=== PATIENT | female | born 1940 | race Caucasian/White ===

== ENCOUNTER 2017-02-08 20:11 | Emergency (ER) | payer SELFPAY ==
[~2017-02-08] VITALS: Ht 165.1 cm; Wt 83.5 kg
--- NOTE | 2017-02-08 20:19 | NUR ---
PT RECEIVED FROM HOME C/O COUGH CONGESTION. NO SOB NOTED OR COUGH WITH CLEAR LUNG SOUNDS ON AUSCULTATION. NO C/O PAIN. A/OO X3 SPEAKS YARSANISM. WILL CONTINUE TO MONITOR FOR ANY CHANGES DURING THE SHFIT.
[2017-02-08 21:08] LABS: BASOPHILS # (AUTO) 0.1 /CMM (0.0-0.2); BASOPHILS % (AUTO) 0.9 % (0.0-2.0); EOSINOPHILS % (AUTO) 0.5 % (0.0-6.0); HEMATOCRIT 41 % (33-45); HEMOGLOBIN 14.5 g/dL (11.5-14.8); LYMPHOCYTES # (AUTO) 1.6 /CMM (0.8-4.8); LYMPHOCYTES % (AUTO) 26.7 % (20.0-44.0); MEAN CORPUSCULAR HEMOGLOBIN 29 PG (26.0-33.0); MEAN CORPUSCULAR HGB CONC 35 g/dl (31.0-36.0); MEAN CORPUSCULAR VOLUME 83 fL (82-100); MONOCYTES # (AUTO) 0.8 /CMM (0.1-1.30); MONOCYTES % (AUTO) 12.4 % (2.0-12.0); NEUTROPHILS # (AUTO) 3.6 /CMM (1.8-8.9); NEUTROPHILS % (AUTO) 59.5 % (43.0-81.0); PLATELET COUNT (AUTO) 159 /CMM (150-450); RDW COEFFICIENT OF VARIATION 13.1 (11.5-15.0); RED BLOOD CELL COUNT(AUTO) 4.99 MIL/uL (4.0-5.2); WHITE BLOOD COUNT (AUTO) 6.1 K/uL (4.3-11.0)
[2017-02-08 21:21] LABS: CALCIUM, SERUM 9.1 mg/dL (8.5-10.1); CARBON DIOXIDE 26 mmol/L (21-32); CHLORIDE 100 mmol/L (98-107); CREATININE 1.1 mg/dL (0.6-1.3); GLUCOSE 130 mg/dL (74-106); POTASSIUM 3.3 mmol/L (3.5-5.1); SODIUM SERUM 135 mmol/L (136-145); UREA NITROGEN, BLOOD 22 mg/dL (7-18)
[2017-02-08 21:28] LABS: ALANINE AMINOTRANSFERASE 43 U/L (12-78); ALBUMIN 3.4 g/dL (3.4-5.0); ALKALINE PHOSPHATASE 97 U/L (46-116); ASPARTATE AMINOTRANSFERASE 178 U/L (15-37); BILIRUBIN,DIRECT 0.1 mg/dL (0.0-0.2); BILIRUBIN,TOTAL 0.4 mg/dL (0.2-1.0); TOTAL PROTEIN, SERUM 7.6 g/dL (6.4-8.2)
[2017-02-08] MEDS ORDERED: IV NS 0.9% 1,000 ML BAG IV ONE (21:30)
[2017-02-08 21:32] LABS: TROPONIN I 0.027 ng/mL (0.00-0.056)
--- NOTE | 2017-02-08 22:10 | NUR ---
pt resting quietly, no acute distress noted, resp even and unlabored. pt daughter at bedside.
--- NOTE | 2017-02-08 23:06 | NUR ---
pt resting, pain free. call nakita emmanuel.
[2017-02-08] MEDS ORDERED: ASPIRIN 325 MG TABLET PO ONE (23:30)
[2017-02-08] MEDS ORDERED: ASPIRIN 325 MG TABLET ONE (23:31)
--- NOTE | 2017-02-08 23:55 | NUR ---
er md at bedside talking to pt regarding admission. pt undecided about getting admitted to the hospital and requesting time to think about it. pt and pt family members at bedside.
[2017-02-09] MEDS ORDERED: POTASSIUM CHLORIDE 20 MEQ TAB.PRT.SR PO ONE ×2 (00:16)
--- NOTE | 2017-02-09 00:46 | NUR ---
IV removed. Catheter intact and site benign. Pressure and 4x4 applied to site. No bleeding noted. Patient does not wish to proceed with medical care recommended by (Priya). Patient given information related to possible complications, up to and including , which could occur as a result of leaving the hospital at this time. Patient verbalizes understanding of risks involved due to leaving against medical advice. Patient has signed AMA form. Pt aaox4, vebalize all risks explained by er md. no acute distress noted, resp even and unlabored. pt family members at bedside to take pt home.
[2017-02-09 00:51] VITALS: BP 142/79
== END 2017-02-09 00:51 | disposition left against medical advice (07) ==
LOC: ER 20:15
DX: B34.9 Viral infection, unspecified (principal); R79.89 Other specified abnormal findings of blood chemistry; E87.6 Hypokalemia; F31.9 Bipolar disorder, unspecified; Z88.2 Allergy status to sulfonamides; Z79.82 Long term (current) use of aspirin
CPT/HCPCS: 36415; 71010; 80048; 80076; 83605; 84484; 85025; 87040 ×2; 93005; 96360; 99285; A4606; J7030; Z7610

== ENCOUNTER 2023-12-13 19:39 | Emergency (ER) | payer BC ==
[~2023-12-13] VITALS: Ht 167.6 cm; Wt 69.9 kg
[2023-12-13 20:20] LABS: BASOPHILS % (AUTO) 0.5 % (0.0-2.0); EOSINOPHILS # (AUTO) 0.3 K/uL (0.0-0.7); EOSINOPHILS % (AUTO) 4.2 % (0.0-6.0); HEMATOCRIT 39 % (39-51); HEMOGLOBIN 12.8 g/dL (13.5-17.5); LYMPHOCYTES # (AUTO) 1.3 K/uL (0.8-4.8); LYMPHOCYTES % (AUTO) 17.4 % (20.0-44.0); MEAN CORPUSCULAR HEMOGLOBIN 29 PG (26.0-33.0); MEAN CORPUSCULAR HGB CONC 33 g/dl (31.0-36.0); MEAN CORPUSCULAR VOLUME 86 fL (80-96); MONOCYTES # (AUTO) 0.7 K/uL (0.1-1.30); MONOCYTES % (AUTO) 8.8 % (2.0-12.0); NEUTROPHILS # (AUTO) 5.1 K/uL (1.8-8.9); NEUTROPHILS % (AUTO) 69.1 % (43.0-81.0); PLATELET COUNT (AUTO) 238 K/uL (150-450); RED BLOOD CELL COUNT(AUTO) 4.51 MIL/uL (4.5-6.0); RED CELL DISTRIBUTION WIDTH 15.3 % (11.5-15.0); WHITE BLOOD COUNT (AUTO) 7.4 K/uL (4.3-11.0)
[2023-12-13 20:34] LABS: ALANINE AMINOTRANSFERASE 19 U/L (12-78); ALBUMIN 3.2 g/dL (3.4-5.0); ALKALINE PHOSPHATASE 104 U/L (46-116); ASPARTATE AMINOTRANSFERASE 17 U/L (15-37); BILIRUBIN,TOTAL 0.3 mg/dL (0.2-1.0); CALCIUM, SERUM 9.2 mg/dL (8.5-10.1); CARBON DIOXIDE 27 mmol/L (21-32); CHLORIDE 101 mmol/L (98-107); CREATININE 1.3 mg/dL (0.6-1.3); GLUCOSE 129 mg/dL (74-106); POTASSIUM 3.8 mmol/L (3.5-5.1); SODIUM SERUM 136 mmol/L (136-145); TOTAL PROTEIN, SERUM 6.7 g/dL (6.4-8.2); UREA NITROGEN, BLOOD 20 mg/dL (7-18)
[2023-12-13 20:35] LABS: BILIRUBIN,DIRECT 0.1 mg/dL (0.0-0.2)
[2023-12-13 21:54] LABS: APPEARANCE,URINE Slightly Cloudy (CLEAR); BILIRUBIN,URINE Negative (NEGATIVE); BLOOD, URINE Trace-intact Ery/uL (NEGATIVE); COLOR,URINE YELLOW (YELLOW); KETONES,URINE Negative (NEGATIVE); LEUKOCYTE ESTERASE ,URINE Small (NEGATIVE); NITRITE, URINE Negative (NEGATIVE); PH,URINE 6.5 (5.0-8.0); PROTEIN,URINE Negative (NEGATIVE); UGLUCOSE Negative (NEGATIVE); UROBILINOGEN,URINE 0.2 EU/dL (0.2)
[2023-12-13 22:05] LABS: ADD URINE CULTURE YES; BACTERIA,URINE 4+ /HPF (None Seen); SQUAMOUS EPITHELIAL CELL,UR Few /HPF (None Seen); WBC,URINE 51-80 /HPF (0-3)
[2023-12-13] MEDS ORDERED: CEPH500C2 PO (22:12)
[2023-12-13] MEDS ORDERED: CEFTRIAXONE 1GM BAG (ER ONLY) 50 ML IV ONE (22:28)
[2023-12-13] MEDS: CEFTRIAXONE 1GM BAG (ER ONLY) 1 GM/50 ML PIGGYBACK IV ONE (22:29)
[2023-12-13 23:04] VITALS: BP 132/80; TEMP 98.3; O2SAT 96
== END 2023-12-13 23:04 | disposition home or self-care (01) ==
LOC: EDSEX 19:41 → ER 19:41
DX: N39.0 Urinary tract infection, site not specified (principal); R55 Syncope and collapse; R94.31 Abnormal electrocardiogram [ECG] [EKG]; R06.02 Shortness of breath; F31.9 Bipolar disorder, unspecified; I10 Essential (primary) hypertension; R07.89 Other chest pain; Z88.2 Allergy status to sulfonamides; Z60.2 Problems related to living alone
CPT/HCPCS: 99285; 96365; 70450; 71045; 93005; 85025; 80048; 87086; 80076; 81001; 36415; 84484 ×2; J0696

== ENCOUNTER 2024-01-18 18:11 | Inpatient (IN) | payer BC ==
[~2024-01-18] VITALS: Ht 160 cm; Wt 76.2 kg
[~2024-01-18 18:11] MED LIST: CEPH500C2 PO
[2024-01-18] MEDS: ONDANSETRON HCL/PF 4 MG/2 ML VIAL IVP ONE (18:30)
[2024-01-18] MEDS: HYDROMORPHONE INJ 2 MG/ML DISP.SYRIN IV ONE (18:30)
[2024-01-18] MEDS ORDERED: ONDANSETRON HCL/PF 4 MG/2 ML VIAL ONE (18:34)
[2024-01-18] MEDS ORDERED: HYDROMORPHONE 1 MG/1 ML DISP.SYRIN ONE (18:34)
[2024-01-18 18:49] LABS: BASOPHILS % (AUTO) 0.2 % (0.0-2.0); EOSINOPHILS # (AUTO) 0.1 K/uL (0.0-0.7); EOSINOPHILS % (AUTO) 1.4 % (0.0-6.0); HEMATOCRIT 36 % (33-45); HEMOGLOBIN 12.5 g/dL (11.5-14.8); LYMPHOCYTES # (AUTO) 0.9 K/uL (0.8-4.8); LYMPHOCYTES % (AUTO) 12.2 % (20.0-44.0); MEAN CORPUSCULAR HEMOGLOBIN 30 PG (26.0-33.0); MEAN CORPUSCULAR HGB CONC 35 g/dl (31.0-36.0); MEAN CORPUSCULAR VOLUME 86 fL (82-100); MONOCYTES # (AUTO) 0.7 K/uL (0.1-1.30); MONOCYTES % (AUTO) 9.5 % (2.0-12.0); NEUTROPHILS # (AUTO) 5.8 K/uL (1.8-8.9); NEUTROPHILS % (AUTO) 76.7 % (43.0-81.0); PLATELET COUNT (AUTO) 226 K/uL (150-450); RED BLOOD CELL COUNT(AUTO) 4.22 MIL/uL (4.0-5.2); RED CELL DISTRIBUTION WIDTH 15.7 % (11.5-15.0); WHITE BLOOD COUNT (AUTO) 7.5 K/uL (4.3-11.0)
[2024-01-18] MEDS ORDERED: ASPI-1169 PO (18:50)
[2024-01-18] MEDS ORDERED: CLOZ100T32 PO (18:50)
[2024-01-18] MEDS ORDERED: LISI-656 PO (18:50)
[2024-01-18] MEDS ORDERED: LOSA50TA39 PO (18:50)
[2024-01-18] MEDS ORDERED: BIFI4CAP PO (18:50)
[2024-01-18] MEDS ORDERED: METF-440 PO (18:50)
[2024-01-18] MEDS ORDERED: MULT-634 PO (18:50)
[2024-01-18] MEDS ORDERED: TURM500C9 PO (18:50)
[2024-01-18] MEDS ORDERED: CHOL100062 PO (18:50)
[2024-01-18 18:55] LABS: CARBON DIOXIDE 31 mmol/L (21-32); CHLORIDE 103 mmol/L (98-107); CREATININE 0.9 mg/dL (0.6-1.3); GLUCOSE 113 mg/dL (74-106); POTASSIUM 4.6 mmol/L (3.5-5.1); SODIUM SERUM 139 mmol/L (136-145); UREA NITROGEN, BLOOD 21 mg/dL (7-18)
[2024-01-18] MEDS: IV NS 0.9% 1,000 ML BAG IV ONE (18:56)
[2024-01-18 19:36] LABS: INR 0.98 (0.91-1.10); PARTIAL THROMBOPLASTIN TIME 27.5 SEC (24.3-34.3); PROTHROMBIN TIME 10.4 SECS (9.2-11.1)
[2024-01-18] MEDS ORDERED: DEXTROSE 50%-WATER 50 ML DISP.SYRIN IV PRN (21:00)
[2024-01-18] MEDS ORDERED: ONDANSETRON HCL/PF 4 MG/2 ML VIAL IVP PRN (21:00)
[2024-01-18 21:12] VITALS: BP 166/83; TEMP 97.8; O2SAT 95
[2024-01-18] MEDS: IV D5/0.45 NACL 1,000 ML IV PRN (22:01)
[2024-01-18] MEDS: BLOOD SUGAR DIAGNOSTIC 1 EACH STRIP IN SCH (22:33)
[2024-01-18] MEDS: INSULIN REGULAR, HUMAN 100 UNIT/ML 3 ML VIAL SQ PRN (22:34)
[2024-01-18 22:42] VITALS: BP 166/83; TEMP 97.8; O2SAT 95
[2024-01-19] MEDS ORDERED: hydrALAZINE HCL IV 20 MG VIAL IV PRN (01:00)
[2024-01-19 06:40] LABS: BASOPHILS % (AUTO) 0.3 % (0.0-2.0); CALCIUM, SERUM 8.8 mg/dL (8.5-10.1); CARBON DIOXIDE 26 mmol/L (21-32); CHLORIDE 106 mmol/L (98-107); CREATININE 0.9 mg/dL (0.6-1.3); EOSINOPHILS # (AUTO) 0.2 K/uL (0.0-0.7); EOSINOPHILS % (AUTO) 2.6 % (0.0-6.0); GLUCOSE 109 mg/dL (74-106); HEMATOCRIT 34 % (33-45); HEMOGLOBIN 11.5 g/dL (11.5-14.8); LYMPHOCYTES # (AUTO) 1.3 K/uL (0.8-4.8); LYMPHOCYTES % (AUTO) 21.4 % (20.0-44.0); MAGNESIUM 1.8 mg/dL (1.8-2.4); MEAN CORPUSCULAR HEMOGLOBIN 29 PG (26.0-33.0); MEAN CORPUSCULAR HGB CONC 34 g/dl (31.0-36.0); MEAN CORPUSCULAR VOLUME 86 fL (82-100); MONOCYTES # (AUTO) 0.7 K/uL (0.1-1.30); MONOCYTES % (AUTO) 11.4 % (2.0-12.0); NEUTROPHILS % (AUTO) 64.3 % (43.0-81.0); PHOSPHORUS 4.9 mg/dL (2.5-4.9); PLATELET COUNT (AUTO) 203 K/uL (150-450); POTASSIUM 4.1 mmol/L (3.5-5.1); RED BLOOD CELL COUNT(AUTO) 3.94 MIL/uL (4.0-5.2); RED CELL DISTRIBUTION WIDTH 15.6 % (11.5-15.0); SODIUM SERUM 139 mmol/L (136-145); UREA NITROGEN, BLOOD 20 mg/dL (7-18); WHITE BLOOD COUNT (AUTO) 6.3 K/uL (4.3-11.0)
[2024-01-19 06:54] LABS: CHOLESTEROL 198 mg/dL (<200); HDL CHOLESTEROL 54 mg/dL (40-60); LDL 132 mg/dL (0-99); TRIGLYCERIDES 72 mg/dL (30-150)
[2024-01-19] MEDS: PANTOPRAZOLE 40 MG TABLET.DR PO SCH (07:30)
[2024-01-19 08:00] VITALS: BP 160/72; TEMP 97.9; O2SAT 97
[2024-01-19] MEDS: MULTIVITAMINS,THERAGRAN 1 UDTAB TABLET PO SCH (08:21)
[2024-01-19] MEDS: CHOLECALCIFEROL 1,000 UNIT TABLET (VIT D3) PO SCH (08:21)
[2024-01-19] MEDS: LOSARTAN POTASSIUM 50 MG TABLET PO SCH (08:21)
[2024-01-19 16:00] VITALS: BP 167/77; TEMP 97.7; O2SAT 97
[2024-01-19 20:00] VITALS: BP 159/89; TEMP 98.1; O2SAT 97
[2024-01-19] MEDS: ACETAMINOPHEN 325 MG TABLET PO PRN (22:35)
[2024-01-20] MEDS: MORPHINE SULFATE INJ 2 MG/ML DISP.SYRIN IV PRN (04:10)
[2024-01-20 06:49] LABS: CALCIUM, SERUM 8.7 mg/dL (8.5-10.1); CARBON DIOXIDE 27 mmol/L (21-32); CHLORIDE 104 mmol/L (98-107); GLUCOSE 129 mg/dL (74-106); POTASSIUM 4.1 mmol/L (3.5-5.1); SODIUM SERUM 138 mmol/L (136-145); UREA NITROGEN, BLOOD 19 mg/dL (7-18)
[2024-01-20 07:19] LABS: BASOPHILS % (AUTO) 0.6 % (0.0-2.0); EOSINOPHILS # (AUTO) 0.4 K/uL (0.0-0.7); EOSINOPHILS % (AUTO) 5.6 % (0.0-6.0); HEMATOCRIT 35 % (33-45); HEMOGLOBIN 11.5 g/dL (11.5-14.8); LYMPHOCYTES # (AUTO) 1.3 K/uL (0.8-4.8); LYMPHOCYTES % (AUTO) 19.5 % (20.0-44.0); MEAN CORPUSCULAR HEMOGLOBIN 29 PG (26.0-33.0); MEAN CORPUSCULAR HGB CONC 33 g/dl (31.0-36.0); MEAN CORPUSCULAR VOLUME 86 fL (82-100); MONOCYTES # (AUTO) 0.8 K/uL (0.1-1.30); MONOCYTES % (AUTO) 11.9 % (2.0-12.0); NEUTROPHILS % (AUTO) 62.4 % (43.0-81.0); PLATELET COUNT (AUTO) 187 K/uL (150-450); RED BLOOD CELL COUNT(AUTO) 4.03 MIL/uL (4.0-5.2); RED CELL DISTRIBUTION WIDTH 15.4 % (11.5-15.0); WHITE BLOOD COUNT (AUTO) 6.4 K/uL (4.3-11.0)
[2024-01-20] MEDS ORDERED: ANESTHESIA TRAY IN PYXIS 1 EA TRAY MC ONE (07:50)
[2024-01-20] MEDS ORDERED: BUPIVACAINE 0.5 % PF 150 MG/30 ML VIAL ONE (07:50)
[2024-01-20] MEDS ORDERED: VANCOMYCIN 1 GM VIAL ONE (07:50)
[2024-01-20] MEDS ORDERED: VASOPRESSIN INJ 20 UNIT/ML VIAL ONE (09:57)
[2024-01-20] MEDS ORDERED: ROCURONIUM BROMIDE 50 MG/5 ML ONE (09:57)
[2024-01-20] MEDS ORDERED: FENTANYL PF 100MCG/2ML AMPUL ONE (09:57)
[2024-01-20] MEDS ORDERED: CLINDAMYCIN 900 MG/6 ML VIAL ONE (09:59)
[2024-01-20] MEDS ORDERED: ROPIVACAINE HCL 0.5% 5 MG/ML 30ML VIAL ONE (10:31)
[2024-01-20] MEDS: IV D5/0.45 NACL W/20 MEQ KCL 1L IV SCH (14:13)
[2024-01-20] MEDS: CLINDAMYCIN 900 MG in IV D5W 50 ML IV SCH (17:16)
[2024-01-20 20:00] VITALS: BP 142/83; TEMP 99; O2SAT 97
[2024-01-21 07:30] VITALS: BP 121/65; TEMP 98.1; O2SAT 97
[2024-01-21] MEDS: IV D5/0.45 NACL W/20 MEQ KCL 1L IV SCH (07:53)
[2024-01-21 10:35] LABS: BASOPHILS % (AUTO) 0.2 % (0.0-2.0); EOSINOPHILS # (AUTO) 0.1 K/uL (0.0-0.7); HEMATOCRIT 32 % (33-45); HEMOGLOBIN 10.6 g/dL (11.5-14.8); LYMPHOCYTES # (AUTO) 1.3 K/uL (0.8-4.8); MEAN CORPUSCULAR HEMOGLOBIN 29 PG (26.0-33.0); MEAN CORPUSCULAR HGB CONC 33 g/dl (31.0-36.0); MEAN CORPUSCULAR VOLUME 86 fL (82-100); MONOCYTES # (AUTO) 0.9 K/uL (0.1-1.30); MONOCYTES % (AUTO) 12.1 % (2.0-12.0); NEUTROPHILS # (AUTO) 4.8 K/uL (1.8-8.9); NEUTROPHILS % (AUTO) 67.7 % (43.0-81.0); PLATELET COUNT (AUTO) 196 K/uL (150-450); RED CELL DISTRIBUTION WIDTH 15.1 % (11.5-15.0)
[2024-01-21 13:46] LABS: CALCIUM, SERUM 8.5 mg/dL (8.5-10.1); CARBON DIOXIDE 20 mmol/L (21-32); CHLORIDE 103 mmol/L (98-107); CREATININE 0.9 mg/dL (0.6-1.3); GLUCOSE 181 mg/dL (74-106); POTASSIUM 3.9 mmol/L (3.5-5.1); SODIUM SERUM 138 mmol/L (136-145); UREA NITROGEN, BLOOD 20 mg/dL (7-18)
[2024-01-21] MEDS: HYDROCODONE/APAP 10/325MG TABLET PO PRN (14:02)
[2024-01-21 16:00] VITALS: BP 119/65; TEMP 97.3; O2SAT 98
[2024-01-21] MEDS: CLOZAPINE 100 MG TABLET PO SCH (19:46)
[2024-01-21 20:00] VITALS: BP 129/63; TEMP 97.9; O2SAT 96
[2024-01-22 08:00] VITALS: BP 161/88; TEMP 98.6; O2SAT 99
[2024-01-22] MEDS: MAGNESIUM HYDROXIDE 30 ML UDC PO PRN (08:55)
[2024-01-22 16:08] VITALS: BP 140/85; TEMP 98.1; O2SAT 94
[2024-01-22 20:00] VITALS: BP 151/89; TEMP 97.9; O2SAT 97
[2024-01-22] MEDS: MORPHINE SULFATE INJ 2 MG/ML DISP.SYRIN IV PRN (20:12)
[2024-01-23 08:00] VITALS: BP 150/90; TEMP 97.9; O2SAT 98
[2024-01-23] MEDS: ENOXAPARIN SODIUM 40 MG/0.4 ML DISP.SYRIN SQ SCH (09:14)
[2024-01-23] MEDS: POLYETHYLENE GLYCOL 3350 17 GM POWD.PACK PO ONE (14:09)
[2024-01-23] MEDS: BISACODYL SUPP (10 MG) 10 MG/SUPP.RECT SUPP.RECT RC ONE (15:05)
[2024-01-23 16:00] VITALS: BP 139/90; TEMP 98.2; O2SAT 99
[2024-01-23 20:00] VITALS: BP 131/76; TEMP 98.1; O2SAT 97
[2024-01-24 08:00] VITALS: BP 141/94; TEMP 98.6; O2SAT 98
[2024-01-24 09:14] VITALS: BP 141/94
== END 2024-01-24 13:10 | DRG 494 ==
LOC: ER 18:28 → MED 20:42
PROVIDERS: ADMIT Nurse Practitioner Family; ATTEND Internal Medicine
PROC: 0QSG04Z Reposition Right Tibia with Internal Fixation Device, Open Approach (ICD-10-PCS; principal; 2024-01-20)
PROC: 0QSJ04Z Reposition Right Fibula with Internal Fixation Device, Open Approach (ICD-10-PCS; 2024-01-20)
DX: S82.841A Displaced bimalleolar fracture of right lower leg, initial encounter for closed fracture (principal); E11.65 Type 2 diabetes mellitus with hyperglycemia; I10 Essential (primary) hypertension; E78.5 Hyperlipidemia, unspecified; Z88.0 Allergy status to penicillin; Z88.2 Allergy status to sulfonamides; Z79.899 Other long term (current) drug therapy; Z79.84 Long term (current) use of oral hypoglycemic drugs; Z79.82 Long term (current) use of aspirin; F31.9 Bipolar disorder, unspecified; W18.30XA Fall on same level, unspecified, initial encounter; Y92.009 Unspecified place in unspecified non-institutional (private) residence as the place of occurrence of the external cause
CPT/HCPCS: 36415; 71045-TC; 73600-TC; 73700-TC; 80048-TC; 80061-TC; 82962-TC; 83735-TC; 84100-TC; 85025-TC; 85730-TC; 86850-TC; 93307-TC; 97110-TC; 97530-TC; 97535-TC; A4223; A6402; C1713; G0378; J0330; J1100; J1171; J1650; J1815; J2270; J2405; J2704; J2765; J2795; J3010; J3370; J3480; J3490; J7030; J7050; J7060